=== PATIENT | female | born 1995 | race Two or more races ===

== ENCOUNTER → 2017-09-28 14:45 | Outpatient (CLI) | payer OTHER ==
[~2017-09-28] VITALS: Ht 152.4 cm; Wt 65.8 kg
[~2017-09-28 14:45] MED LIST: CATAFLAM50 MG PO; CEFUROXIME500 MG PO; FIORICET 50-321 EACH PO; FIORICET PO; FLONASE16 GM NASAL
== END | disposition home or self-care (01) ==
LOC: PPHC 14:45
DX: J32.8 Other chronic sinusitis (principal); J30.89 Other allergic rhinitis

== ENCOUNTER → 2017-09-30 | Outpatient (CLI) | payer OTHER ==
[~2017-09-30] VITALS: Ht 157.5 cm; Wt 62.6 kg
== END | disposition home or self-care (01) ==
LOC: OFIC 805 07:25
DX: H93.12 Tinnitus, left ear (principal); J34.3 Hypertrophy of nasal turbinates; J32.8 Other chronic sinusitis; R05 Cough; R51 Headache

== ENCOUNTER 2017-10-08 15:15 | Outpatient (CLI) | payer OTHER | END 2017-10-08 15:18 | disposition home or self-care (01) | LOC: LAB 15:15 | DX: R51 Headache (principal); R50.9 Fever, unspecified ==

== ENCOUNTER → 2017-10-08 | Outpatient (CLI) | payer OTHER ==
[~2017-10-08] VITALS: Ht 152.4 cm; Wt 62.6 kg
== END | disposition home or self-care (01) ==
LOC: PPHC 14:45
DX: B34.9 Viral infection, unspecified (principal)

== ENCOUNTER 2017-12-03 07:29 | Outpatient (CLI) | payer OTHER | END 2017-12-03 07:32 | disposition home or self-care (01) | LOC: TOM 07:29 | DX: J32.9 Chronic sinusitis, unspecified (principal) ==

== ENCOUNTER 2017-12-07 08:55 | Outpatient (CLI) | payer OTHER ==
[~2017-12-07] VITALS: Ht 152.4 cm; Wt 62.6 kg
== END 2017-12-07 09:10 | disposition home or self-care (01) ==
LOC: OFIC 805 08:55
DX: J30.89 Other allergic rhinitis (principal)

== ENCOUNTER → 2018-01-15 | Outpatient (CLI) | payer OTHER | END | disposition home or self-care (01) | LOC: PPHC 10:11 | DX: Z02.79 Encounter for issue of other medical certificate (principal) ==

== ENCOUNTER → 2018-01-15 | Outpatient (CLI) | payer OTHER ==
[~2018-01-15] VITALS: Ht 152.4 cm; Wt 63.5 kg
== END | disposition home or self-care (01) ==
LOC: PPHC 10:08
DX: Z00.8 Encounter for other general examination (principal)

== ENCOUNTER 2018-02-10 08:10 | Emergency (ER) | payer OTHER ==
[~2018-02-10] VITALS: Ht 157.5 cm; Wt 63.5 kg
== END 2018-02-10 12:17 | disposition home or self-care (01) ==
LOC: ER 08:10
DX: M54.2 Cervicalgia (principal); R51 Headache

== ENCOUNTER 2018-03-11 06:11 | Emergency (ER) | payer OTHER ==
[~2018-03-11] VITALS: Ht 157.5 cm; Wt 63.5 kg
== END 2018-03-11 10:15 | disposition home or self-care (01) ==
LOC: ER 06:11
DX: R51 Headache (principal)

== ENCOUNTER 2018-04-05 09:00 | Outpatient (CLI) | payer OTHER | END 2018-04-05 09:02 | disposition home or self-care (01) | LOC: LAB 09:00 | DX: R42 Dizziness and giddiness (principal); R51 Headache ==